=== PATIENT | female | born 1950 | race Caucasian/White ===

== ENCOUNTER 2023-04-21 06:08 | Day surgery (SDC) | payer MEDICARE, SELFPAY ==
[2023-04-21 06:33] VITALS: BP 142/77; PULSE 80; RESP 16; TEMP 36.3; O2SAT 98
[2023-04-21] MEDS: Tropicam./Phenyleph. (1/2.5%) 5 ML BTL OS ×3 (06:41→06:53)
--- NOTE | 2023-04-21 06:44 | ANES.PREOP_ITS ---
General Info Date of Service Date Performed: 04/21/23 Height: 5 ft 3 in Weight: 54 kg Body Mass Index (BMI): 21.0 Surgical Procedure: Operation Date: 04/21/23 07:40 Proposed Procedure Side Surgeon p Cataract Extraction with IOL Implant Left Ayush Kaur MD Meds Allergies and Home Medications Allergies Allergy/AdvReac Type Severity Reaction Status Date / Time No Known Allergies Allergy Unverified 04/21/23 06:31 Home Medication Medication Instructions Recorded acyclovir 400 mg tablet 400 mg PO DIRECTED 04/19/23 albuterol sulfate 90 mcg/actuation 2 puff inhalation QID 04/19/23 aerosol inhaler calcium carbonate 500 mg-vitamin 1 tab PO DAILY 04/19/23 D3 10 mcg (400 unit) tablet (Calcium 500 + D) fluticasone propionate 110 2 puff inhalation BID 04/19/23 mcg/actuation HFA aerosol inhaler (Flovent HFA) multivitamin 1 tab PO DAILY 04/19/23 omega-3 fatty acids 1 cap PO DAILY 04/19/23 simvastatin 40 mg tablet 40 mg PO DAILY 04/19/23 Current Visit Medications: Current Medications Generic Name Dose Route Start Last Admin Trade Name Freq PRN Reason Stop Dose Admin Acetaminophen 1,000 mg 04/21/23 06:00 Acetaminophen 500 Mg Tab PO 05/21/23 05:59 Q4H PRN PRN Balanced Salt Solution 500 ml 04/21/23 06:00 Balanced Salt Soln.-Plus 500 Ml Bag OP 05/21/23 05:59 DIRECTED SCOTT Miscellaneous Medication 0 ml 04/21/23 06:00 Prednisolone 1%, Moxifloxacin 0.5%, Nepafenac 0.1% 5ml Btl OS 05/21/23 05:59 DIRECTED SCOTT Miscellaneous Medication 0 ml 04/21/23 06:00 04/21/23 06:41 Tropicam./Phenyleph. (1/2.5%) 5 Ml Btl OS 05/21/23 05:59 1 drp DIRECTED SCOTT Administration Tetracaine HCl 0 ml 04/21/23 06:00 Tetracaine 0.5% 4 Ml Btl OS 05/21/23 05:59 DIRECTED SCOTT PFSH Active Problems Active Problems: Problem Status Onset Code Nuclear age-related cataract, left eye H25.12 Medical History Medical History (Updated 04/21/23 @ 06:28 by Wesley Tolbert) Asthma Post-menopause Osteoporosis Mild intermittent asthma HLD (hyperlipidemia) Herpes simplex Fibrocystic breast disease Tobacco Smoking/Tobacco Use Status: Former Tobacco Use Alcohol Alcohol Intake: current Alcohol intake frequency: a few times a month Alcohol type: wine Substance Use Substance use: Never Substance use type: does not use Vital Signs and Lab Results Vital Signs Most Recent Vital Signs in EMR: Most Recent Vital Signs Temp Pulse Resp BP Pulse Ox 36.3 C L 80 16 142/77 H 98 04/21/23 06:33 04/21/23 06:33 04/21/23 06:33 04/21/23 06:33 04/21/23 06:33 Lab Results Blood Type / Crossmatch: 2 No Data to Display Complete Blood Count: 2 No Data to Display Complete Metabolic Panel: 2 No Data to Display Liver Function Panel: 2 No Data to Display Coagulation Panel: 2 No Data to Display Cardiac Panel: 2 No Data to Display Arterial Blood Gas: 2 No Data to Display Venous Blood Gas: 2 No Data to Display Pancreas Panel: 2 No Data to Display Thyroid Panel: 2 No Data to Display Infectious Disease: 2 No Data to Display Blood Cultures: 2 No Data to Display Toxicology Panel: 2 No Data to Display Anesthesia Assessment and Plan Anesthesia History Personal History: No History of Anesthesia Complications Family History: No Family History of Anesthesia Complications Exercise Tolerance Exercise Tolerance: Metabolic Equivalents>4 Pertinent Negatives Pertinent Negatives: No Symptoms of GERD, No Major Cardiovascular Symptoms or Complaints and No History of CVA/TIA Cardiac & Pulmonary Exam Cardiac Exam: Normal S1/S2 Heart Sounds Pulmonary Exam: Clear Bilateral Breath Sounds Cardiac and Pulmonary Comment:: Asthma has been well controlled, took flovent and albuterol this morning Implantable Cardiac Device Does patient have a Pacemaker or an ICD?: No Airway Exam Known Difficult Airway: No Mallampati Class: 1 Mouth Opening: Normal (> 3cm) Thyromental Distance: Greater than 3 cm Neck Range of Motion: Full ROM Neck Circumference: Normal Teeth Condition: Normal Dentition and Removable Dentures/Plates Upper (partial upper plate one tooth. will indicate location below) Tooth Numberin 1. ASA Classification ASA Score: ASA 2 Emergency Case?: No NPO Status NPO Status: NPO Clears >2 hours, Solids >8 hours Anesthesia Plan Resuscitation Status: Full Code Anesthesia Technique: MAC Anesthesia Airway Planned: Natural Airway Monitors Used: Standard Monitors
[2023-04-21 07:11] VITALS: BMI 21.0
[2023-04-21] MEDS: Lidocaine 1% Pres-Free 5 ML VIAL (07:38)
[2023-04-21] MEDS: Duovisc Viscoelastic System EACH 1 EACH (07:40)
[2023-04-21] MEDS: Phenylephrine/Lidocaine (15/10) MG/ML 1 ML VIAL (07:41)
[2023-04-21] MEDS: Balanced Salt Soln.-PLUS 500 ML BAG OP (07:42)
[2023-04-21] MEDS: Povidone-Iodine Ophth 30 ML BTL (07:42)
[2023-04-21] MEDS: Tetracaine 0.5% 4 ML BTL OS (07:44)
--- NOTE | 2023-04-21 08:00 | W.PM.DSUDISC ---
Date of service: 04/21/23 Time of Service: 08:00 Discharge Plan Disposition Patient Disposition: Home Discharge Details Attending Provider: Ayush Kaur Primary Care Provider: Gerardo Sandoval Home Meds and New Rx's Prescriptions: No Action multivitamin Tablet 1 tab PO DAILY acyclovir 400 mg tablet 400 mg PO DIRECTED Patient Comments: TAKE 1 TABLET BY MOUTH TWICE DAILY NEEDED FOR 14 DAYS simvastatin 40 mg tablet 40 mg PO DAILY Patient Comments: TAKE 1 TABLET BY MOUTH ONCE DAILY FOR 90 DAYS albuterol sulfate 90 mcg/actuation HFA aerosol inhaler 2 puff INHALATION QID Patient Comments: INHALE 2 PUFFS BY MOUTH 4 TIMES DAILY NEEDED fluticasone propionate [Flovent HFA] 110 mcg/actuation HFA aerosol inhaler 2 puff INHALATION BID Patient Comments: INHALE 2 PUFFS BY MOUTH TWICE DAILY Fish Oil Capsule 1 cap PO DAILY calcium carbonate-vitamin D3 [Calcium 500 + D] 500 mg-10 mcg (400 unit) Tablet 1 tab PO DAILY Discharge Instructions Stand Alone Forms: Post-op Topical Cataract, Gigi Lakhani (DSU) Discharge Orders Discharge Orders: Discharge Order (Routine); Ordered 04/21/23 Ordered By: Ayush Kaur DS: Diagnosis Discharge Diagnosis (1) Nuclear age-related cataract, left eye: Status: Resolved (2) History of radial keratotomy: Status: Chronic
[2023-04-21 08:01] VITALS: BP 139/76; PULSE 72; RESP 16; TEMP 36.5; O2SAT 98
--- NOTE | 2023-04-21 08:01 | W.PM.OP ---
Date of service: 04/21/23 Time of Service: 08:01 Operative Note Operative Note DATE OF PROCEDURE: 04/21/23 PRE-OP DIAGNOSIS: Nuclear cataract, left eye Status post 8 cut radial keratotomy, left eye POST-OP DIAGNOSIS: same PROCEDURE: Cataract extraction using phacoemulsification with intraocular lens implant, left eye SURGEON: Ayush Kaur ANESTHESIA TYPE: Local By Surgeon and MAC Refer to Anesthesia Record PATHOLOGY: none sent COMPLICATIONS: None Patient was transported to: same day Patient's condition: stable Implants: Sukumar and Sukumar Tecnis Eyhance [id number] Indications: Progressive decreased vision due to cataract, left eye Procedure Description: CATARACT SURGERY OPERATIVE REPORT PREOPERATIVE DIAGNOSIS: 1. Nuclear cataract, left eye 2. Status post 8 cut radial keratotomy, left eye POSTOPERATIVE DIAGNOSIS: Same OPERATION: 1. Cataract extraction using phacoemulsification with posterior chamber intraocular lens implant, left eye. IOL: IOL Hand Binder Cutter/Model: Sukumar & Sukumar Tecnis Eyhance DIB00 IOL Power: + 21.5 diopters IOL Serial Number: [id number] Optic Diameter: 6.0 mm Haptic/Overall Diameter: 13.0 mm PHACO INFO: Gm Zapaurion Vision System with OZil and Active Fluidics Cumulative Dispersed Energy (CDE): 7.97 seconds SURGEON: Ayush Kaur MD, JESSICA ANESTHESIA: Monitored A [facility] (MAC), with local sub-tenon's anesthetic infiltration COMPLICATIONS: None SPECIMENS: None INDICATIONS FOR PROCEDURE: The patient is a 73-year-old lady who underwent a Radial keratotomy for myopia approximately 30 years ago. She has developed a significant nuclear cataract in the left eye. The option of cataract surgery was offered to the patient and she wished to proceed. See office notes for detailed information. PROCEDURE: The correct surgical eye was identified and marked as the left eye and the pupil was dilated in the preoperative area using mydriatics and cycloplegics. The dilated pupil size was 8.0 mm. Oral sedation was administered in the form of an Imprimis MKO Melt (midazolam 3mg/ketamine 25mg/ondansetron 2mg). The patient elected to proceed without oral sedation. The patient was brought to the operating room where cardiopulmonary monitoring was instituted and surgical time-out was performed, confirming the correct operative eye and IOL power. Topical anesthesia was administered and ophthalmic povidone-iodine 5% was instilled into the conjunctival fornices. The rafa-ocular area was prepped with Betadine 10% solution and draped in the usual sterile fashion for intraocular surgery, including an aperture drape. A Tegaderm transparent film dressing was cut in half and used to cover the lashes and lid margins. Care was taken to sequester the lashes and lid margins under the Tegaderm dressing. A lid speculum was placed between the lids of the operative eye and the Gm LuxOR Revalia operating microscope was maneuvered into position. Bobbi scissors were then used to make a conjunctival buttonhole approximately 6mm posterior to the limbus in the inferonasal quadrant. Blunt dissection was carried out to expose bare sclera, and a blunt-tipped sub-tenon?s anesthesia cannula was introduced and passed posteriorly along the globe where non-preserved plain lidocaine was injected into posterior sub-Tenon?s space. A sideport knife was used to make a paracentesis port between the radial keratotomy cuts. Intraocular phenylephrine/lidocaine was injected into the anterior chamber.. The anterior chamber was filled with viscoelastic. A keratome knife was used to construct a 2-plane near-clear corneal tunnel extending 2.0mm into clear cornea between the temporal/inferior temporal radial keratotomy cuts.. A flap was raised on the anterior capsule and capsulorhexis forceps were used to complete a continuous curvilinear capsulorhexis of 5.0 mm. Balanced salt solution was then used to perform cortical cleaving hydrodissection and nuclear hydrodelineation until the lens could be freely rotated within the capsular bag. The lens nucleus was then disassembled and removed within the capsular bag and iris plane using phacoemulsification. Residual cortical material was removed using the irrigation/aspiration handpiece. The posterior capsule was carefully polished to remove as much residual lens epithelial cells as safely possible. The capsular bag was then inflated and the anterior chamber deepened with viscoelastic. The lens implant described above was inserted into the capsular bag using the Sukumar and Sukumar Simplicity pre-loaded injector. A Kuglen hook was used to dial the IOL into position. Residual viscoelastic was then removed first from posterior to the IOL, then from the anterior chamber using the I/A handpiece. The lens implant was noted to center nicely within the capsular bag. The incisions were stromally hydrated, and the anterior chamber was reformed using BSS. Then 0.5cc of moxifloxacin 1.0mg/ml were injected into the capsular bag and anterior chamber. The incisions were checked with a Weck spear and found to be secure. Several drops of ophthalmic povidone-iodine 5% were then applied to the eye followed by two drops of Imprimis combination prednisolone/moxifloxacin/nepafenac solution. The drapes were removed and a clear plastic protective eye shield was placed over the eye. The patient was then returned to Same Day Surgery in stable condition.
--- NOTE | 2023-04-21 08:18 | W.ANESPOSTOP ---
Postoperative Evaluation Date, Time and Location Date Performed: 04/21/23 Time Performed: 08:02 Patient Location: Day Surgery Unit Vital Signs Most Recent Imported Vital Signs: Most Recent Vital Signs Temp Pulse Resp BP Pulse Ox 36.5 C 72 16 139/76 98 04/21/23 08:01 04/21/23 08:01 04/21/23 08:01 04/21/23 08:01 04/21/23 08:01 Pain Score Most Recent Pain Score: Most Recent Pain Score Pain Level 0 04/21/23 08:01 Assessment Mental Status: Awake (Alert & Oriented to Patient Baseline) Airway and Respiratory Function: Patent airway with normal (patient baseline) respiratory exam Cardiovascular Function: Hemodynamically Stable Hydration Status: Adequately Hydrated Nausea & Vomiting: No Nausea or Vomiting Pain: Pt. Denies Any Pain Peripheral Nerve Block: Other (Local by Dr. Kaur)
[2023-04-21 08:31] VITALS: BP 109/74; PULSE 75; RESP 16; TEMP 37; O2SAT 96
== END 2023-04-21 08:35 | disposition home or self-care (01) ==
LOC: SUR 06:09
PROVIDERS: PCP Family Medicine; Visit Provider Ophthalmology
PROC: (CPT 66984; principal; 2023-04-21 07:30)
DX: H25.12 Age-related nuclear cataract, left eye (principal); Z98.890 Other specified postprocedural states
CPT/HCPCS: 66984; 00123; V2632

== ENCOUNTER 2023-05-05 06:18 | Day surgery (SDC) | payer MEDICARE, SELFPAY ==
[2023-05-05 06:35] VITALS: BP 119/64; PULSE 63; RESP 16; TEMP 36.3; O2SAT 100
[2023-05-05] MEDS: Tropicam./Phenyleph. (1/2.5%) 5 ML BTL OD ×3 (06:45→06:57)
--- NOTE | 2023-05-05 07:11 | W.ANESPRE ---
General Info Date of Service Date Performed: 05/05/23 Height: 5 ft 3 in Weight: 53.9 kg Body Mass Index (BMI): 21.0 Surgical Procedure: Operation Date: 05/05/23 07:40 Proposed Procedure Side Surgeon p Cataract Extraction with IOL Implant Right Ayush Kaur MD Meds Allergies and Home Medications Allergies Allergy/AdvReac Type Severity Reaction Status Date / Time No Known Allergies Allergy Unverified 05/05/23 06:37 Home Medication Medication Instructions Recorded acyclovir 400 mg tablet 400 mg PO DIRECTED 04/19/23 albuterol sulfate 90 mcg/actuation 2 puff inhalation QID 04/19/23 aerosol inhaler calcium carbonate 500 mg-vitamin 1 tab PO DAILY 04/19/23 D3 10 mcg (400 unit) tablet (Calcium 500 + D) fluticasone propionate 110 2 puff inhalation BID 04/19/23 mcg/actuation HFA aerosol inhaler (Flovent HFA) multivitamin 1 tab PO DAILY 04/19/23 omega-3 fatty acids 1 cap PO DAILY 04/19/23 simvastatin 40 mg tablet 40 mg PO DAILY 04/19/23 Current Visit Medications: Current Medications Generic Name Dose Route Start Last Admin Trade Name Freq PRN Reason Stop Dose Admin Acetaminophen 1,000 mg 05/05/23 06:00 Acetaminophen 500 Mg Tab PO 06/04/23 05:59 Q4H PRN PRN Balanced Salt Solution 500 ml 05/05/23 06:00 Balanced Salt Soln.-Plus 500 Ml Bag OP 06/04/23 05:59 DIRECTED SCOTT Miscellaneous Medication 0 ml 05/05/23 06:00 Prednisolone 1%, Moxifloxacin 0.5%, Nepafenac 0.1% 5ml Btl OD 06/04/23 05:59 DIRECTED SCOTT Miscellaneous Medication 0 ml 05/05/23 06:00 05/05/23 06:57 Tropicam./Phenyleph. (1/2.5%) 5 Ml Btl OD 06/04/23 05:59 1 drp DIRECTED SCOTT Administration Tetracaine HCl 0 ml 05/05/23 06:00 Tetracaine 0.5% 4 Ml Btl OD 06/04/23 05:59 DIRECTED SCOTT PFSH Active Problems Active Problems: Problem Status Onset Code Cortical age-related cataract, right eye H25.011 Nuclear age-related cataract, right eye H25.11 Nuclear age-related cataract, left eye H25.12 History of radial keratotomy Z98.890 Medical History Medical History Asthma Post-menopause Osteoporosis Mild intermittent asthma HLD (hyperlipidemia) Herpes simplex Fibrocystic breast disease Surgical History Surgical History Hx of colonoscopy S/P cataract extraction Tobacco Smoking/Tobacco Use Status: Former Tobacco Use Alcohol Alcohol Intake: current Alcohol intake frequency: a few times a month Alcohol type: wine Substance Use Substance use: Never Substance use type: does not use Vital Signs and Lab Results Vital Signs Most Recent Vital Signs in EMR: Most Recent Vital Signs Temp Pulse Resp BP Pulse Ox 36.3 C L 63 16 119/64 100 05/05/23 06:35 05/05/23 06:35 05/05/23 06:35 05/05/23 06:35 05/05/23 06:35 Lab Results Blood Type / Crossmatch: No Data to Display Complete Blood Count: No Data to Display Complete Metabolic Panel: No Data to Display Liver Function Panel: No Data to Display Coagulation Panel: No Data to Display Cardiac Panel: No Data to Display Arterial Blood Gas: No Data to Display Venous Blood Gas: No Data to Display Pancreas Panel: No Data to Display Thyroid Panel: No Data to Display Infectious Disease: No Data to Display Blood Cultures: No Data to Display Toxicology Panel: No Data to Display Anesthesia Assessment and Plan Anesthesia History Personal History: No History of Anesthesia Complications Family History: No Family History of Anesthesia Complications Exercise Tolerance Exercise Tolerance: Metabolic Equivalents>4 Pertinent Negatives Pertinent Negatives: No Symptoms of GERD Cardiac & Pulmonary Exam Cardiac Exam: Normal S1/S2 Heart Sounds Pulmonary Exam: Clear Bilateral Breath Sounds Implantable Cardiac Device Does patient have a Pacemaker or an ICD?: No Airway Exam Known Difficult Airway: No Mallampati Class: 1 Mouth Opening: Normal (> 3cm) Thyromental Distance: Greater than 3 cm Neck Range of Motion: Full ROM Neck Circumference: Normal Teeth Condition: Normal Dentition and Removable Dentures/Plates Upper (partial upper plate one tooth. will indicate location below) ASA Classification ASA Score: ASA 2 Emergency Case?: No NPO Status NPO Status: NPO Clears >2 hours, Solids >8 hours Anesthesia Plan Resuscitation Status: Full Code Anesthesia Technique: MAC Anesthesia Airway Planned: Natural Airway Monitors Used: Standard Monitors
[2023-05-05 07:12] VITALS: BMI 21.0
[2023-05-05] MEDS: Tetracaine 0.5% 4 ML BTL OD (07:29)
[2023-05-05] MEDS: Balanced Salt Soln.-PLUS 500 ML BAG OP (07:38)
[2023-05-05] MEDS: Lidocaine 1% Pres-Free 5 ML VIAL (07:43)
[2023-05-05] MEDS: Duovisc Viscoelastic System EACH 1 EACH (07:45)
[2023-05-05] MEDS: Povidone-Iodine Ophth 30 ML BTL (07:45)
[2023-05-05] MEDS: Phenylephrine/Lidocaine (15/10) MG/ML 1 ML VIAL (07:45)
--- NOTE | 2023-05-05 07:59 | W.PM.DSUDISC ---
Date of service: 05/05/23 Time of Service: 08:00 Discharge Plan Disposition Patient Disposition: Home Discharge Details Attending Provider: Ayush Kaur Primary Care Provider: Gerardo Sandoval Home Meds and New Rx's Prescriptions: No Action multivitamin Tablet 1 tab PO DAILY acyclovir 400 mg tablet 400 mg PO DIRECTED Patient Comments: TAKE 1 TABLET BY MOUTH TWICE DAILY NEEDED FOR 14 DAYS simvastatin 40 mg tablet 40 mg PO DAILY Patient Comments: TAKE 1 TABLET BY MOUTH ONCE DAILY FOR 90 DAYS albuterol sulfate 90 mcg/actuation HFA aerosol inhaler 2 puff INHALATION QID Patient Comments: INHALE 2 PUFFS BY MOUTH 4 TIMES DAILY NEEDED fluticasone propionate [Flovent HFA] 110 mcg/actuation HFA aerosol inhaler 2 puff INHALATION BID Patient Comments: INHALE 2 PUFFS BY MOUTH TWICE DAILY Fish Oil Capsule 1 cap PO DAILY calcium carbonate-vitamin D3 [Calcium 500 + D] 500 mg-10 mcg (400 unit) Tablet 1 tab PO DAILY Discharge Instructions Stand Alone Forms: Post-op Topical Cataract, Gigi Lakhani (DSU) Discharge Orders Discharge Orders: Discharge Order (Routine); Ordered 05/05/23 Ordered By: Ayush Kaur DS: Diagnosis Discharge Diagnosis (1) Cortical age-related cataract, right eye: Status: Resolved (2) Nuclear age-related cataract, right eye: Status: Resolved
--- NOTE | 2023-05-05 08:00 | W.PM.OP ---
Date of service: 05/05/23 Time of Service: 08:00 Operative Note Operative Note DATE OF PROCEDURE: 05/05/23 PRE-OP DIAGNOSIS: Nuclear/cortical cataract, right eye Status post radial keratotomy, right eye POST-OP DIAGNOSIS: same PROCEDURE: Cataract extraction using phacoemulsification with intraocular lens implant, right eye SURGEON: Ayush Kaur ANESTHESIA TYPE: Local By Surgeon and MAC Refer to Anesthesia Record ESTIMATED BLOOD LOSS: 0 PATHOLOGY: none sent COMPLICATIONS: None Patient was transported to: same day Patient's condition: stable Implants: Sukumar & Sukumar Tecnis Eyhance DIB00 Indications: Progressive visual loss due to cataract, right eye Procedure Description: CATARACT SURGERY OPERATIVE REPORT PREOPERATIVE DIAGNOSIS: 1. Nuclear/cortical cataract, right eye POSTOPERATIVE DIAGNOSIS: Same OPERATION: 1. Cataract extraction using phacoemulsification with posterior chamber intraocular lens implant, right eye. IOL: IOL Prototyper/Model: Sukumar & Sukumar Tecnis Eyhance DIB00 IOL Power: + 21.0 diopters IOL Serial Number: [id number] Optic Diameter: 6.0mm Haptic/Overall Diameter: 13.0mm PHACO INFO: Gm ZingCheckouturion Vision System with OZil and Active Fluidics Cumulative Dispersed Energy (CDE): 8.91 seconds SURGEON: Ayush Kaur MD, JESSICA ANESTHESIA: Monitored Anesthesia Care (MAC), with local sub-tenon's anesthetic infiltration COMPLICATIONS: None SPECIMENS: None INDICATIONS FOR PROCEDURE: The patient is a 73-year-old lady with history of diminished visual acuity in her right eye secondary to the development of nuclear/cortical cataract. She is previously undergone radial keratotomy to correct myopia many years ago. She has already undergone cataract surgery in the left eye and is doing well postoperatively. She now presents for cataract surgery in the right eye. See office notes for detailed information. PROCEDURE: The correct surgical eye was identified and marked as the right eye and the pupil was dilated in the preoperative area using mydriatics and cycloplegics. The dilated pupil size was 8.0 mm. Oral sedation was administered in the form of an Imprimis MKO Melt (midazolam 3mg/ketamine 25mg/ondansetron 2mg). The patient was brought to the operating room where cardiopulmonary monitoring was instituted and surgical time-out was performed, confirming the correct operative eye and IOL power. Topical anesthesia was administered and ophthalmic povidone-iodine 5% was instilled into the conjunctival fornices. The rafa-ocular area was prepped with Betadine 10% solution and draped in the usual sterile fashion for intraocular surgery, including an aperture drape. A Tegaderm transparent film dressing was cut in half and used to cover the lashes and lid margins. Care was taken to sequester the lashes and lid margins under the Tegaderm dressing. A lid speculum was placed between the lids of the operative eye and the Gm LuxOR Revalia operating microscope was maneuvered into position. Bobbi scissors were then used to make a conjunctival buttonhole approximately 6mm posterior to the limbus in the inferonasal quadrant. Blunt dissection was carried out to expose bare sclera, and a blunt-tipped sub-tenon?s anesthesia cannula was introduced and passed posteriorly along the globe where non-preserved plain lidocaine was injected into posterior sub-Tenon?s space. A sideport knife was used to make a paracentesis port. Intraocular phenylephrine/lidocaine was injected into the anterior chamber. The anterior chamber was filled with viscoelastic. A keratome knife was used to construct a 2-plane clear corneal tunnel extending 2.0mm into clear cornea. A flap was raised on the anterior capsule and capsulorhexis forceps were used to complete a continuous curvilinear capsulorhexis of 5.0 mm. Balanced salt solution was then used to perform cortical cleaving hydrodissection and nuclear hydrodelineation until the lens could be freely rotated within the capsular bag. The lens nucleus was then disassembled and removed within the capsular bag and iris plane using phacoemulsification. Residual cortical material was removed using the I/A handpiece. The posterior capsule was carefully polished to remove as much residual lens epithelial cells as safely possible. The capsular bag was then inflated and the anterior chamber deepened with cohesive viscoelastic. The lens implant described above was inserted into the capsular bag using the Sukumar and Miensh Simplicity pre-loaded injector. A Kuglen hook was used to dial the IOL into position. Residual viscoelastic was then removed first from posterior to the IOL, then from the anterior chamber using the I/A handpiece. The lens implant was noted to center nicely within the capsular bag. The incisions were stromally hydrated, and the anterior chamber was reformed using BSS. Then 0.5cc of moxifloxacin 1.0mg/ml were injected into the capsular bag and anterior chamber. The incisions were checked with a Weck spear and found to be secure. Several drops of ophthalmic povidone-iodine 5% were then applied to the eye followed by two drops of Imprimis combination prednisolone/moxifloxacin/nepafenac solution. The drapes were removed and a clear plastic protective eye shield was placed over the eye. The patient was then returned to Same Day Surgery in stable condition.
[2023-05-05 08:01] VITALS: BP 123/60; PULSE 53; RESP 16; TEMP 36.5; O2SAT 100
--- NOTE | 2023-05-05 08:15 | W.ANESPOSTOP ---
Postoperative Evaluation Date, Time and Location Date Performed: 05/05/23 Time Performed: 08:10 Patient Location: Day Surgery Unit Vital Signs Most Recent Imported Vital Signs: Most Recent Vital Signs Temp Pulse Resp BP Pulse Ox 36.5 C 53 L 16 123/60 100 05/05/23 08:01 05/05/23 08:01 05/05/23 08:01 05/05/23 08:01 05/05/23 08:01 Pain Score Most Recent Pain Score: Most Recent Pain Score Pain Level 0 05/05/23 08:01 Assessment Mental Status: Awake (Alert & Oriented to Patient Baseline) Airway and Respiratory Function: Patent airway with normal (patient baseline) respiratory exam Cardiovascular Function: Hemodynamically Stable Hydration Status: Adequately Hydrated Nausea & Vomiting: No Nausea or Vomiting Pain: Pt. Denies Any Pain Peripheral Nerve Block: Patient did not receive a nerve block
[2023-05-05 08:27] VITALS: BP 103/66; PULSE 58; RESP 16; TEMP 36.6; O2SAT 98
== END 2023-05-05 08:35 | disposition home or self-care (01) ==
LOC: SUR 06:19
PROVIDERS: PCP Family Medicine; Visit Provider Ophthalmology
PROC: (CPT 66984; principal; 2023-05-05 07:30)
DX: H25.011 Cortical age-related cataract, right eye (principal); H25.11 Age-related nuclear cataract, right eye; Z98.890 Other specified postprocedural states; Z98.42 Cataract extraction status, left eye
CPT/HCPCS: 66984; 00123; V2632